=== PATIENT | female | born 1935 | race Caucasian/White ===

== ENCOUNTER 2020-07-08 09:50 | Emergency (ER) | payer MEDICARE, OTHER ==
[~2020-07-08] VITALS: Ht 170.2 cm; Wt 68.3 kg
[2020-07-08 10:25] LABS: BASOPHILS % (AUTO) 1 % (0-1); EOSINOPHILS % (AUTO) 1 % (1-7); LYMPHOCYTES % (AUTO) 8 % (22-44); MEAN CORPUSCULAR HEMOGLOBIN 28.2 pg (27.0-34.8); MEAN CORPUSCULAR HGB CONC 33.7 g/dL (32.4-35.8); MEAN PLATELET VOLUME 8.9 fL (7.4-10.4); MONOCYTES % (AUTO) 12 % (2-9); NEUTROPHILS % (AUTO) 78 % (42-75); PLATELET COUNT 170 x10^3/uL (130-400); RED BLOOD COUNT 5.26 x10^6/uL (3.82-5.3); RED CELL DISTRIBUTION WIDTH 14.2 % (9.6-15.2)
[2020-07-08 10:30] LABS: MD NO
[2020-07-08 10:37] LABS: ALANINE AMINOTRANSFERASE 31 U/L (12-78); ALBUMIN 3.3 g/dL (3.4-5.0); ANION GAP 7 mmol/L (5-15); CALCIUM 8.7 mg/dL (8.5-10.1); CHLORIDE 103 mmol/L (98-107); CREATININE 1.57 mg/dL (0.55-1.02)
[2020-07-08 10:38] LABS: ALKALINE PHOSPHATASE 81 U/L (45-117); BILIRUBIN,TOTAL 0.7 mg/dL (0.2-1.0); TOTAL PROTEIN 7.9 g/dL (6.4-8.2)
--- NOTE | 2020-07-08 11:07 | NUR ---
PT CAME FROM [facility] FOR [facility] YESTERDAY AND ALOC PER STAFF AT [facility]. PT IS A DNR AND DR. LORENZ REPORTS BROTHER WHO HAS POA STATES SHE WAS "GOOFY" SINCE THURSDAY. PT ON MONITOR AND STRAIGHT CATH URINE ATTEMPTING TO BE OBTAINED BY FEMALE NURSE. BS WAS 94.
[2020-07-08 11:26] LABS: MICROSCOPIC NOT IND
[2020-07-08] MEDS ORDERED: DICLOFENAC GEL 1% TP (11:41)
[2020-07-08] MEDS ORDERED: IPRA15SP NS (11:41)
[2020-07-08] MEDS ORDERED: BENZ1LOZ51 PO (11:41)
[2020-07-08] MEDS ORDERED: FEXO180T15 PO (11:41)
[2020-07-08] MEDS ORDERED: ALEN70TA66 PO (11:41)
[2020-07-08] MEDS ORDERED: LEVO112T4 PO (11:41)
[2020-07-08] MEDS ORDERED: CYCL-259 PO (11:41)
[2020-07-08] MEDS ORDERED: MIRT-34 PO (11:45)
[2020-07-08] MEDS ORDERED: TRAM50TA2 PO ×2 (11:45)
[2020-07-08] MEDS ORDERED: GUAI-487 PO (11:45)
[2020-07-08] MEDS ORDERED: CHOL10003 PO (11:45)
[2020-07-08] MEDS ORDERED: LOVA20TA2 PO (11:45)
[2020-07-08] MEDS ORDERED: TRIA1TAB3 PO (11:45)
[2020-07-08] MEDS ORDERED: OMEP40CA42 PO (11:45)
[2020-07-08] MEDS ORDERED: TEMA15CA PO (11:45)
[2020-07-08] MEDS ORDERED: OXYB5TAB10 PO (11:45)
[2020-07-08] MEDS ORDERED: SODIUM CHLORIDE 0.9% 1,000ML IVBOLUS ONE (12:00)
[2020-07-08] MEDS ORDERED: AZITHROMYCIN 500 MG in SODIUM CHLORIDE 0.9% 250 ML IV ONE (12:00)
[2020-07-08] MEDS ORDERED: CEFTRIAXONE PMX 1GM/50ML 50 ML IVPB ONE (12:00)
--- NOTE | 2020-07-08 12:04 | NUR ---
REPORT TO MARCELO Bush RN.
[2020-07-08 12:44] LABS: D-DIMER (DIC) 1.77 ug/mlFEU (0.00-0.52); PROTIME 11.6 Seconds (9.6-11.5)
[2020-07-08 12:50] LABS: C-REACTIVE PROTEIN, QUANT 6.9 mg/dL (0.02-0.49)
--- NOTE | 2020-07-08 15:04 | NUR ---
REPORT TO OPERIA RN, PATIENT AWARE OF IMPENDING TRANSFER, NO NEEDS AT THIS TIME. WILL CONTINUE TO MONITOR.
--- NOTE | 2020-07-08 15:52 | NUR ---
[facility].
[2020-07-08 15:55] VITALS: BP 117/72
== END 2020-07-08 15:58 | disposition short-term general hospital (02) ==
LOC: ED 11:52 → UNDOADMIN 12:17 → EDIP 12:17 → ED 15:58
DX: U07.1 COVID-19 (principal); J18.9 Pneumonia, unspecified organism; G93.41 Metabolic encephalopathy; N28.9 Disorder of kidney and ureter, unspecified; R13.10 Dysphagia, unspecified; R41.82 Altered mental status, unspecified; R62.7 Adult failure to thrive; I45.10 Unspecified right bundle-branch block; Z68.23 Body mass index [BMI] 23.0-23.9, adult; I10 Essential (primary) hypertension; K21.9 Gastro-esophageal reflux disease without esophagitis; E78.5 Hyperlipidemia, unspecified
CPT/HCPCS: 36415; 70450; 71045; 80053; 81003; 82728; 83605; 83615; 84145; 85025; 85049; 85379; 85384; 85610; 85730; 86140; 87040; 87635; 93005; 96365; 96367; 99285; J0456; J0696; J7030; J7050